=== PATIENT | female | born 1955 | race Caucasian/White ===

== ENCOUNTER 2017-04-05 14:52 | Emergency (ER) | payer OTHER ==
[~2017-04-05] VITALS: Ht 154.9 cm; Wt 48.2 kg
[~2017-04-05 14:52] MED LIST: ATARAX,VISTARIL50 MG PO; BUSPAR10 MG PO; EFFEXOR XR150 MG PO; EFFEXOR XR75 MG PO; IBUPROFEN800 MG PO; MOTRIN800 MG PO; NON-ASPIRIN EX500 M2 PO; TOPROL XL25 MG PO; VENLAFAXINE225 MG PO; ZOFRAN ODT4 MG PO
[2017-04-05 17:20] LABS: BASOPHIL (%) 0.4 % (0-1); EOSINOPHIL (%) 0 % (0-5); HEMATOCRIT 38.3 % (36.0-46.0); HEMOGLOBIN 11.8 G/DL (11.9-15.5); IMMATURE GRANULOCYTE (%) 0.5 % (0.0-0.7); LYMPHOCYTE (%) 6.6 % (15-42); LYMPHOCYTE COUNT 0.5 K/uL (1.0-2.8); MCH 25.2 PG (29.0-34.0); MCHC 30.8 G/DL (30.0-36.0); MCV 81.7 FL (83-99); MONOCYTE (%) 8.4 % (3-12); MONOCYTE COUNT 0.7 K/uL (0-0.8); NEUTROPHIL (%) 84.1 % (45-76); NEUTROPHIL COUNT 6.9 K/uL (1.8-6.4); PLATELET COUNT 247 K/uL (156-360); RBC DIS.WIDTH-CV 14.5 % (11.8-14.6); RBC DIS.WIDTH-SD 42.2 % (39-53); RED BLOOD COUNT 4.69 M/uL (3.80-5.20); WHITE BLOOD COUNT 8.2 K/uL (4.1-10.2)
[2017-04-05 17:29] LABS: CHLORIDE 104 mEq/L (99-109); POTASSIUM 4.5 mEq/L (3.7-5.4); SODIUM 135 mEq/L (136-147)
[2017-04-05 17:31] LABS: GLUCOSE 95 mg/dL (70-99)
[2017-04-05 17:34] LABS: CREATININE 0.7 mg/dL (0.6-1.3); GFR ESTIMATE (CALCULATED) > 59 mL/min/
[2017-04-05 17:35] LABS: UREA NITROGEN (BUN) 16 mg/dL (9-23)
[2017-04-05 17:41] LABS: TROP-I INTERPRETATION NEGATIVE; TROPONIN-I < 0.01 ng/mL (0.0-0.30)
[2017-04-05 19:34] LABS: APPEARANCE CLEAR ((CLEAR)); BILIRUBIN NEGATIVE; BLOOD SMALL; COLOR YELLOW ((YELLOW)); GLUCOSE (STRIP) NEGATIVE; KETONES 20; LEUKOCYTES NEGATIVE; NITRITE NEGATIVE; PROTEIN (STRIP) NEGATIVE; SPECIFIC GRAVITY 1.017 (1.000-1.030); UROBILINOGEN 0.2 MG/DL (0.2-1.0)
[2017-04-05 19:41] LABS: BACTERIA NONE SEEN /HPF; EPITHELIAL CELLS RARE /HPF; HYALINE CASTS 0-5 /LPF; MUCUS TRACE /LPF; RED BLOOD CELLS 0-5 /HPF (0-5); UCUL ADDED? NO; WHITE BLOOD CELLS 0-5 /HPF (0-5)
[2017-04-05 21:54] VITALS: BP 148/76
== END 2017-04-05 22:16 | disposition home or self-care (01) ==
LOC: EME 14:52
PROVIDERS: Emergency Medicine
DX: R55 Syncope and collapse (principal); R42 Dizziness and giddiness; R11.0 Nausea; R50.9 Fever, unspecified; R00.0 Tachycardia, unspecified
CPT/HCPCS: 70450; 71010; 80048; 81003; 84484; 85025; 85730; 93005; 99281; 99285; J7030